=== PATIENT | male | born 1955 | race Caucasian/White ===

== ENCOUNTER 2023-03-12 12:25 | Emergency (ER) | payer OTHER, MEDICARE ==
[~2023-03-12] VITALS: Ht 172.7 cm; Wt 77.1 kg
[2023-03-12 12:29] VITALS: BP_SYST 137; PULSE 90; RESP 20; TEMP 98.3; O2SAT 97
[2023-03-12 14:02] LABS: COVID19 ANTIGEN SOFIA FIA NEGATIVE (NEGATIVE); INFLUENZA TYPE A Negative (NEGATIVE); INFLUENZA TYPE B NEGATIVE (NEGATIVE)
[2023-03-12] MEDS ORDERED: ALBUTEROL SULFATE 0.083% 2.5 MG/3 ML VIAL.NEB INH ONE (14:45)
[2023-03-12] MEDS ORDERED: IPRATROPIUM BROM 0.5 MG/2.5 ML VIAL.NEB (ATROVENT) INH ONE (14:45)
[2023-03-12 14:54] VITALS: O2SAT 97
[2023-03-12 15:11] VITALS: O2SAT 99
[2023-03-12] MEDS ORDERED: IPRATROPIUM/ALBUTEROL SULFATE 3 ML AMPUL.NEB (DUONEB) INH ONE (15:15)
[2023-03-12] MEDS ORDERED: ALBMDI INH (15:36)
[2023-03-12] MEDS ORDERED: PRED20TA PO (15:36)
[2023-03-12 15:43] VITALS: BP_SYST 137; PULSE 90; RESP 20; TEMP 98.3; O2SAT 99
== END 2023-03-12 19:43 | disposition home or self-care (01) ==
LOC: EDBD 12:25 → SED 12:25
DX: J45.909 Unspecified asthma, uncomplicated (principal); R05.9 Cough, unspecified; R09.81 Nasal congestion; Z79.899 Other long term (current) drug therapy; Z20.822 Contact with and (suspected) exposure to COVID-19
CPT/HCPCS: 36415; 71045; 94640; 94664; 94760; 99284